=== PATIENT | female | born 1995 | race African-American/Black ===

== ENCOUNTER 2018-09-02 15:05 | Observation (INO) | payer OTHER ==
[~2018-09-02] VITALS: Ht 162.6 cm; Wt 68.0 kg
== END 2018-09-02 18:01 | disposition home or self-care (01) ==
LOC: L&D 15:05
PROVIDERS: ADMIT Specialist; ATTEND Specialist
DX: O26.853 Spotting complicating pregnancy, third trimester (principal); O62.9 Abnormality of forces of labor, unspecified; Z3A.34 34 weeks gestation of pregnancy
CPT/HCPCS: 76805; 76818; 99281; G0378